=== PATIENT | female | born 1955 ===

== ENCOUNTER 2017-04-19 08:50 | Inpatient (IN) ==
[2017-04-19] MEDS ORDERED: ONDANSETRON 4 MG/2 ML VIAL IV STA (09:30)
[2017-04-19] MEDS ORDERED: SODIUM CHLORIDE 0.9% 500 ML IV STA (09:30)
[2017-04-19] MEDS ORDERED: PANTOPRAZOLE 40 MG VIAL IV STA (09:30)
[2017-04-19] MEDS ORDERED: PIPERACILLIN/TAZOBACTAM 3,375 MG in SODIUM CHLORIDE 0.9% 100 ML IV STA (09:30)
[2017-04-19] MEDS ORDERED: HYDROmorphone 2 MG/1 ML VIAL IV STA (09:30)
[2017-04-19] MEDS ORDERED: cefOXitin 2,000 MG in SYRINGE 1 EACH IV ONE (10:10)
[2017-04-19 10:32] LABS: Basophils % 0.1 % (0.0-0.8); Eosinophils % 0.6 % (0.00-10.9); Hematocrit 25.3 VOL% (35.7-47.0); Hemoglobin 9.1 GM/DL (12.0-16.0); Immature Granulocytes % 0.7 %; Immature Granulocytes Absolute 0.05 #; Lymphocytes # 0.8 10*3/uL (1.4-4.0); Lymphocytes % 11.7 % (21.3-54.2); Mean Corpuscular Hemoglobin 35 PG (27-34); Mean Corpuscular Volume 98.4 FL (87-102); Mean Platelet Volume 10.8 FL (9.6-12.0); Monocytes # 0.9 10*3/uL (0.11-0.8); Monocytes % 12.9 % (1.7-12.7); Platelet Count 85 T/CUMM (130-400); Red Blood Count 2.57 MC/CUMM (3.8-5.5); Red Cell Distribution Width 12.1 % (9.3-17.3); White Blood Count 6.8 T/CUMM (4-12)
[2017-04-19] MEDS ORDERED: PIPERACILLIN/TAZOBACTAM 3,375 MG VIAL IV ONE (10:34)
[2017-04-19] MEDS ORDERED: HYDROmorphone 2 MG/1 ML VIAL ONE (10:35)
[2017-04-19] MEDS ORDERED: ONDANSETRON 4 MG/2 ML VIAL ONE (10:35)
[2017-04-19] MEDS ORDERED: PANTOPRAZOLE 40 MG VIAL IV ONE (10:35)
[2017-04-19 10:41] LABS: INR 1.2; PT Patient Result 12.4 SECS
[2017-04-19] MEDS ORDERED: LORazepam 2 MG/1 ML VIAL IV PRN (10:44)
[2017-04-19 10:51] LABS: Lactic Acid 0.8 MMOL/L (0.4-2.0)
[2017-04-19 11:00] LABS: Alanine Aminotransferase 30 U/L (13-56); Albumin 2.1 G/DL (3.4-5.0); Alkaline Phosphatase 214 U/L (45-117); Amylase 22 U/L (25-115); Aspartate Amino Transferase 53 U/L (0-37); Blood Urea Nitrogen 11 MG/DL (7-18); Calcium 6.9 MG/DL (8.5-10.1); Glucose 139 MG/DL (74-106); Osmolality,Calculated 251.5 MOS/KG (273-304); Potassium 4.2 MMOL/L (3.5-5.1); Sodium 125 MMOL/L (136-145); Total Protein 6.1 G/DL (6.4-8.3); Troponin I Only < 0.015 NG/ML (0.00-0.045)
[2017-04-19] MEDS ORDERED: SODIUM CHLORIDE 0.9% 1,000 ML IV SCH (11:00)
[2017-04-19 11:15] LABS: Ammonia 33 UMOL/L (11-32)
[2017-04-19 11:25] LABS: Folate 13.3 NG/ML (5.4-24.0)
[2017-04-19 12:01] LABS: Hypochromasia 1+; Microcytosis 1+
[2017-04-19] MEDS ORDERED: SODIUM CHLORIDE 0.9% 1,000 ML IV PRN (12:12)
[2017-04-19] MEDS ORDERED: PHENYLEPHRINE DRIP 0 MG/0 ML PREMIX IV ONE (15:02)
[2017-04-19] MEDS ORDERED: SEVOFLURANE 1 UNIT/15 MINUTE INH ONE (15:13)
[2017-04-19] MEDS ORDERED: SUCCINYLCHOLINE 200 MG/10 ML VIAL ONE (15:14)
[2017-04-19] MEDS ORDERED: ETOMIDATE 40 MG/20 ML VIAL IV ONE (15:14)
[2017-04-19] MEDS ORDERED: fentaNYL 100 MCG/2 ML VIAL ONE (15:14)
[2017-04-19] MEDS ORDERED: ROCURONIUM 100 MG/10 ML VIAL IV ONE (15:14)
[2017-04-19] MEDS ORDERED: ONDANSETRON 4 MG/2 ML VIAL IV PRN (15:16)
[2017-04-19] MEDS ORDERED: HYDROmorphone 2 MG/1 ML VIAL IV PRN (15:16)
[2017-04-19] MEDS ORDERED: PROPOFOL 1,000 MG/100 ML BOTTLE IV ONE (15:19)
[2017-04-19] MEDS ORDERED: HYDROmorphone PCA 30 MG/30 ML SYRINGE IV SCH (15:39)
[2017-04-19] MEDS ORDERED: NALOXONE 0.4 MG/ML VIAL IV PRN (15:39)
[2017-04-19] MEDS: SODIUM CHLORIDE 0.9% 1,000 ML IV SCH (15:45)
[2017-04-19 16:18] LABS: ABG Base Excess -6.9 MMOL/L (-2.5-2.5); ABG HCO3 18.8 MMOL/L (20-26); ABG PCO2 43.7 MM HG (35-48); ABG PH 7.266 (7.35-7.45); ABG TCO2 18.4 MMOL/L (23-27); Allen Test Positive; Pt O2 Delivery Device Ventilator
[2017-04-19] MEDS ORDERED: PNEUMOCOCCAL VACCINE (23 VALENT) 0.5 ML VIAL IM ONE (17:00)
[2017-04-19 18:29] LABS: Basophils % 0.2 % (0.0-0.8); Eosinophils % 0.1 % (0.00-10.9); Hematocrit 25.5 VOL% (35.7-47.0); Hemoglobin 9.2 GM/DL (12.0-16.0); Immature Granulocytes % 0.3 %; Immature Granulocytes Absolute 0.03 #; Lymphocytes # 0.8 10*3/uL (1.4-4.0); Lymphocytes % 7.3 % (21.3-54.2); Mean Corpuscular HGB Conc 36.1 GM/DL (32-36); Mean Corpuscular Hemoglobin 36 PG (27-34); Mean Corpuscular Volume 98.5 FL (87-102); Mean Platelet Volume 10.4 FL (9.6-12.0); Monocytes # 0.6 10*3/uL (0.11-0.8); Monocytes % 5.5 % (1.7-12.7); Neutrophils # 9.8 10*3/uL (1.4-7.4); Neutrophils % 86.6 % (38.7-73.9); Platelet Count 127 T/CUMM (130-400); Red Blood Count 2.59 MC/CUMM (3.8-5.5); Red Cell Distribution Width 12.8 % (9.3-17.3); White Blood Count 11.3 T/CUMM (4-12)
[2017-04-19] MEDS: PROPOFOL 1,000 MG/100 ML BOTTLE IV SCH (20:41)
[2017-04-20] MEDS ORDERED: fentaNYL 100 MCG/2 ML VIAL IV ONE (00:29)
[2017-04-20] MEDS: fentaNYL INJ 1,250 MCG in SODIUM CHLORIDE 0.9% 225 ML IV SCH ×2 (02:00→15:28)
[2017-04-20] MEDS ORDERED: SODIUM CHLORIDE 0.9% 500 ML IV ONE (03:00)
[2017-04-20 04:06] LABS: ABG Base Excess -7.5 MMOL/L (-2.5-2.5); ABG Oxygen Saturation 98.9 % (95-100); ABG PCO2 31.3 MM HG (35-48); ABG PH 7.354 (7.35-7.45); ABG PO2 272.6 MM HG (80-95); Allen Test Positive; Pt O2 Delivery Device Ventilator
[2017-04-20] MEDS: SODIUM CHLORIDE 0.9% 1,000 ML IV SCH ×3 (05:34→18:35)
[2017-04-20] MEDS: NOREPINEPHRINE 8 MG in SODIUM CHLORIDE 0.9% 242 ML IV SCH (05:36)
[2017-04-20 05:41] LABS: Basophils % 0.3 % (0.0-0.8); Eosinophils % 0.2 % (0.00-10.9); Hematocrit 22.5 VOL% (35.7-47.0); Immature Granulocytes % 0.6 %; Immature Granulocytes Absolute 0.07 #; Lymphocytes # 0.8 10*3/uL (1.4-4.0); Lymphocytes % 6.5 % (21.3-54.2); Mean Corpuscular HGB Conc 35.6 GM/DL (32-36); Mean Corpuscular Hemoglobin 36 PG (27-34); Mean Corpuscular Volume 101.4 FL (87-102); Mean Platelet Volume 10.4 FL (9.6-12.0); Neutrophils # 10.5 10*3/uL (1.4-7.4); Neutrophils % 84.4 % (38.7-73.9); Platelet Count 112 T/CUMM (130-400); Red Blood Count 2.22 MC/CUMM (3.8-5.5); Red Cell Distribution Width 12.9 % (9.3-17.3); White Blood Count 12.4 T/CUMM (4-12)
[2017-04-20 05:47] LABS: INR 1.1; PT Patient Result 11.9 SECS
[2017-04-20 06:19] LABS: Albumin 1.6 G/DL (3.4-5.0); Bilirubin,Total 2.4 MG/DL (0.2-1.0); Calcium 6.5 MG/DL (8.5-10.1); Osmolality,Calculated 264.7 MOS/KG (273-304); Potassium 4.2 MMOL/L (3.5-5.1); Total Protein 4.6 G/DL (6.4-8.3)
[2017-04-20] MEDS ORDERED: ALBUMIN 5% 50 GM in PREMIX 1 EACH IV ONE (06:40)
[2017-04-20] MEDS ORDERED: SODIUM CHLORIDE 0.9% 1,000 ML IV ONE (07:00)
[2017-04-20] MEDS: THIAMINE 200 MG/2 ML VIAL IV SCH (09:07)
[2017-04-20] MEDS: PANTOPRAZOLE 40 MG VIAL IV SCH (09:08)
[2017-04-20] MEDS: PIPERACILLIN/TAZOBACTAM 3,375 MG in SODIUM CHLORIDE 0.9% 100 ML IV SCH ×2 (10:25→17:23)
[2017-04-20] MEDS: PROPOFOL 1,000 MG/100 ML BOTTLE IV SCH ×2 (11:58→20:53)
[2017-04-20 12:39] LABS: Basophils % 0.2 % (0.0-0.8); Eosinophils % 0.3 % (0.00-10.9); Hematocrit 18.4 VOL% (35.7-47.0); Immature Granulocytes % 0.6 %; Immature Granulocytes Absolute 0.07 #; Lymphocytes # 0.9 10*3/uL (1.4-4.0); Lymphocytes % 7.7 % (21.3-54.2); Mean Corpuscular HGB Conc 34.8 GM/DL (32-36); Mean Corpuscular Hemoglobin 36 PG (27-34); Mean Corpuscular Volume 103.4 FL (87-102); Mean Platelet Volume 9.9 FL (9.6-12.0); Monocytes # 1.2 10*3/uL (0.11-0.8); Monocytes % 9.9 % (1.7-12.7); Neutrophils # 9.6 10*3/uL (1.4-7.4); Neutrophils % 81.3 % (38.7-73.9); Red Blood Count 1.78 MC/CUMM (3.8-5.5); Red Cell Distribution Width 13.2 % (9.3-17.3); White Blood Count 11.8 T/CUMM (4-12)
[2017-04-20 13:07] LABS: Hemoglobin 6.4 GM/DL (12.0-16.0); Platelet Count 92 T/CUMM (130-400)
[2017-04-20 13:16] LABS: Platelet Estimate Decreased
[2017-04-20] MEDS ORDERED: SODIUM CHLORIDE 0.9% 1,000 ML IV PRN ×2 (13:20→23:56)
[2017-04-20] MEDS: ALBUMIN 25% 25 GM in PREMIX 1 EACH IV SCH (15:55)
[2017-04-20] MEDS: LACTULOSE 20 GM/30 ML UDCUP NG SCH ×2 (20:54→22:17)
[2017-04-20 22:36] LABS: Hematocrit 20.9 VOL% (35.7-47.0)
[2017-04-21] MEDS: ALBUMIN 25% 25 GM in PREMIX 1 EACH IV SCH ×3 (00:28→15:56)
[2017-04-21] MEDS: PROPOFOL 1,000 MG/100 ML BOTTLE IV SCH ×2 (01:26→16:14)
[2017-04-21] MEDS: PIPERACILLIN/TAZOBACTAM 3,375 MG in SODIUM CHLORIDE 0.9% 100 ML IV SCH ×3 (02:00→17:11)
[2017-04-21] MEDS: fentaNYL INJ 1,250 MCG in SODIUM CHLORIDE 0.9% 225 ML IV SCH ×2 (02:49→06:38)
[2017-04-21 03:55] LABS: ABG HCO3 17.2 MMOL/L (20-26); ABG Oxygen Saturation 99.8 % (95-100); ABG PCO2 39.8 MM HG (35-48); ABG PH 7.254 (7.35-7.45); ABG TCO2 16.7 MMOL/L (23-27)
[2017-04-21] MEDS: NOREPINEPHRINE 8 MG in SODIUM CHLORIDE 0.9% 242 ML IV SCH (06:37)
[2017-04-21] MEDS: SODIUM CHLORIDE 0.9% 1,000 ML IV SCH ×2 (06:38→16:30)
[2017-04-21 06:43] LABS: Basophils % 0.4 % (0.0-0.8); Eosinophils # 0.2 10*3/uL (0.0-0.87); Eosinophils % 2.2 % (0.00-10.9); Hematocrit 26.4 VOL% (35.7-47.0); Immature Granulocytes % 0.3 %; Immature Granulocytes Absolute 0.02 #; Lymphocytes # 0.4 10*3/uL (1.4-4.0); Lymphocytes % 6.4 % (21.3-54.2); Mean Corpuscular HGB Conc 34.1 GM/DL (32-36); Mean Corpuscular Hemoglobin 32 PG (27-34); Mean Platelet Volume 10.8 FL (9.6-12.0); Monocytes # 0.6 10*3/uL (0.11-0.8); Monocytes % 9.6 % (1.7-12.7); Neutrophils # 5.4 10*3/uL (1.4-7.4); Neutrophils % 81.1 % (38.7-73.9); Platelet Count 81 T/CUMM (130-400); Red Blood Count 2.78 MC/CUMM (3.8-5.5); Red Cell Distribution Width 17.9 % (9.3-17.3); White Blood Count 6.7 T/CUMM (4-12)
[2017-04-21 07:04] LABS: Microcytosis 1+; Ovalocytes Slight; Platelet Estimate Decreased
[2017-04-21 07:06] LABS: Albumin 2.6 G/DL (3.4-5.0); Calcium 6.6 MG/DL (8.5-10.1); Osmolality,Calculated 276.7 MOS/KG (273-304); Potassium 3.7 MMOL/L (3.5-5.1); Total Protein 4.9 G/DL (6.4-8.3)
[2017-04-21 07:49] LABS: INR 1.2; PT Patient Result 12.4 SECS
[2017-04-21 07:53] LABS: Partial Thromboplastin Time 43.9 SECS (0-40)
[2017-04-21] MEDS: THIAMINE 200 MG/2 ML VIAL IV SCH (09:51)
[2017-04-21] MEDS: LACTULOSE 20 GM/30 ML UDCUP NG SCH ×2 (09:51→21:56)
[2017-04-21] MEDS: PANTOPRAZOLE 40 MG VIAL IV SCH (09:51)
[2017-04-21] MEDS ORDERED: DEXTROSE 50% 25 GM/50 ML VIAL IV PRN (12:16)
[2017-04-21] MEDS ORDERED: GLUCAGON 1 MG VIAL IM PRN (12:16)
[2017-04-21] MEDS: INSULIN REGULAR 100 UNIT/ML SUBCUT SCH (18:00)
[2017-04-22] MEDS: INSULIN REGULAR 100 UNIT/ML SUBCUT SCH ×4 (00:28→17:53)
[2017-04-22] MEDS: ALBUMIN 25% 25 GM in PREMIX 1 EACH IV SCH ×3 (00:38→16:00)
[2017-04-22] MEDS: PIPERACILLIN/TAZOBACTAM 3,375 MG in SODIUM CHLORIDE 0.9% 100 ML IV SCH ×3 (03:08→17:30)
[2017-04-22] MEDS: SODIUM CHLORIDE 0.9% 1,000 ML IV SCH ×3 (03:49→22:11)
[2017-04-22 04:18] LABS: ABG Base Excess -9.6 MMOL/L (-2.5-2.5); ABG HCO3 16.8 MMOL/L (20-26); ABG Oxygen Saturation 99.4 % (95-100); ABG PH 7.272 (7.35-7.45); ABG TCO2 15.3 MMOL/L (23-27); Allen Test Positive; Pt O2 Delivery Device Ventilator
[2017-04-22 05:08] LABS: Bilirubin,Total 4.7 MG/DL (0.2-1.0); Osmolality,Calculated 280.4 MOS/KG (273-304); Potassium 3.5 MMOL/L (3.5-5.1); Total Protein 4.9 G/DL (6.4-8.3)
[2017-04-22] MEDS: fentaNYL INJ 1,250 MCG in SODIUM CHLORIDE 0.9% 225 ML IV SCH (05:52)
[2017-04-22] MEDS: NOREPINEPHRINE 8 MG in SODIUM CHLORIDE 0.9% 242 ML IV SCH (05:52)
[2017-04-22 06:21] LABS: Basophils % 0.4 % (0.0-0.8); Eosinophils # 0.2 10*3/uL (0.0-0.87); Eosinophils % 3.7 % (0.00-10.9); Hematocrit 26.8 VOL% (35.7-47.0); Hemoglobin 8.9 GM/DL (12.0-16.0); Immature Granulocytes % 0.4 %; Immature Granulocytes Absolute 0.02 #; Lymphocytes # 0.5 10*3/uL (1.4-4.0); Mean Corpuscular HGB Conc 33.2 GM/DL (32-36); Mean Corpuscular Hemoglobin 32 PG (27-34); Mean Corpuscular Volume 96.4 FL (87-102); Mean Platelet Volume 10.6 FL (9.6-12.0); Monocytes # 0.4 10*3/uL (0.11-0.8); Neutrophils # 4.2 10*3/uL (1.4-7.4); Neutrophils % 78.5 % (38.7-73.9); Platelet Count 59 T/CUMM (130-400); Red Blood Count 2.78 MC/CUMM (3.8-5.5); Red Cell Distribution Width 18.8 % (9.3-17.3); White Blood Count 5.4 T/CUMM (4-12)
[2017-04-22] MEDS: PROPOFOL 1,000 MG/100 ML BOTTLE IV SCH ×2 (07:30→15:38)
[2017-04-22 09:12] LABS: ABG Base Excess -8.8 MMOL/L (-2.5-2.5); ABG HCO3 17.3 MMOL/L (20-26); ABG PCO2 37.7 MM HG (35-48); ABG PH 7.273 (7.35-7.45); ABG TCO2 16.3 MMOL/L (23-27); Allen Test Positive; Pt O2 Delivery Device Ventilator
[2017-04-22] MEDS: THIAMINE 200 MG/2 ML VIAL IV SCH (09:21)
[2017-04-22] MEDS: LACTULOSE 20 GM/30 ML UDCUP NG SCH ×2 (09:21→21:26)
[2017-04-22] MEDS: PANTOPRAZOLE 40 MG VIAL IV SCH (09:21)
[2017-04-22] MEDS ORDERED: SPIRONOLACTONE 50 MG TABLET PO SCH (16:30)
[2017-04-22] MEDS: FUROSEMIDE 40 MG TABLET PO SCH (17:30)
[2017-04-22] MEDS: SPIRONOLACTONE 50 MG TABLET PO SCH (17:30)
[2017-04-23] MEDS: INSULIN REGULAR 100 UNIT/ML SUBCUT SCH ×4 (00:29→18:35)
[2017-04-23] MEDS: fentaNYL INJ 1,250 MCG in SODIUM CHLORIDE 0.9% 225 ML IV SCH (00:30)
[2017-04-23] MEDS: PIPERACILLIN/TAZOBACTAM 3,375 MG in SODIUM CHLORIDE 0.9% 100 ML IV SCH ×3 (01:00→19:20)
[2017-04-23] MEDS: ALBUMIN 25% 25 GM in PREMIX 1 EACH IV SCH ×3 (01:00→16:00)
[2017-04-23 03:50] LABS: Allen Test Positive
[2017-04-23 03:53] LABS: ABG Base Excess -7.7 MMOL/L (-2.5-2.5); ABG HCO3 17.6 MMOL/L (20-26); ABG Oxygen Saturation 98.2 % (95-100); ABG PCO2 35.1 MM HG (35-48); ABG PH 7.319 (7.35-7.45); ABG PO2 141.9 MM HG (80-95); ABG TCO2 18.7 MMOL/L (23-27)
[2017-04-23 04:48] LABS: Basophils % 0.2 % (0.0-0.8); Eosinophils # 0.2 10*3/uL (0.0-0.87); Eosinophils % 5.4 % (0.00-10.9); Hematocrit 26.8 VOL% (35.7-47.0); Hemoglobin 9.4 GM/DL (12.0-16.0); Immature Granulocytes % 0.2 %; Immature Granulocytes Absolute 0.01 #; Lymphocytes # 0.5 10*3/uL (1.4-4.0); Mean Corpuscular HGB Conc 35.1 GM/DL (32-36); Mean Corpuscular Hemoglobin 32 PG (27-34); Mean Corpuscular Volume 91.8 FL (87-102); Mean Platelet Volume 10.1 FL (9.6-12.0); Monocytes # 0.4 10*3/uL (0.11-0.8); Monocytes % 9.4 % (1.7-12.7); Neutrophils # 3.4 10*3/uL (1.4-7.4); Neutrophils % 74.8 % (38.7-73.9); Platelet Count 63 T/CUMM (130-400); Red Blood Count 2.92 MC/CUMM (3.8-5.5); Red Cell Distribution Width 17.9 % (9.3-17.3); White Blood Count 4.5 T/CUMM (4-12)
[2017-04-23 05:21] LABS: INR 1.3; PT Patient Result 13.2 SECS
[2017-04-23 05:22] LABS: Albumin 3.2 G/DL (3.4-5.0); Bilirubin,Total 4.3 MG/DL (0.2-1.0); Calcium 7.4 MG/DL (8.5-10.1); Osmolality,Calculated 284.8 MOS/KG (273-304); Potassium 3.1 MMOL/L (3.5-5.1); Total Protein 4.8 G/DL (6.4-8.3)
[2017-04-23 05:27] LABS: Eosinophils 6 % (0-10); Hypochromasia 1+; Lymphocytes 12 % (20-55); Platelet Estimate Decreased; Segmented Neutrophils 77 % (50-85); Total Cells Counted 100
[2017-04-23 05:28] LABS: Burr Cells Slight; Microcytosis Slight; Ovalocytes Slight
[2017-04-23 05:29] LABS: Partial Thromboplastin Time 48.3 SECS (0-40)
[2017-04-23] MEDS: NOREPINEPHRINE 8 MG in SODIUM CHLORIDE 0.9% 242 ML IV SCH (05:50)
[2017-04-23] MEDS ORDERED: POTASSIUM CHLORIDE 20 MEQ TABLET PO ONE (05:54)
[2017-04-23] MEDS: SODIUM CHLORIDE 0.9% 1,000 ML IV SCH ×3 (07:03→16:04)
[2017-04-23] MEDS: LACTULOSE 20 GM/30 ML UDCUP NG SCH ×3 (10:30→21:55)
[2017-04-23] MEDS: FUROSEMIDE 40 MG TABLET PO SCH (10:30)
[2017-04-23] MEDS: SPIRONOLACTONE 50 MG TABLET PO SCH (10:30)
[2017-04-23] MEDS: PANTOPRAZOLE 40 MG VIAL IV SCH (10:32)
[2017-04-23] MEDS: THIAMINE 200 MG/2 ML VIAL IV SCH (10:34)
[2017-04-24] MEDS: INSULIN REGULAR 100 UNIT/ML SUBCUT SCH ×4 (01:00→19:20)
[2017-04-24] MEDS: ALBUMIN 25% 25 GM in PREMIX 1 EACH IV SCH ×3 (01:38→17:32)
[2017-04-24] MEDS: PIPERACILLIN/TAZOBACTAM 3,375 MG in SODIUM CHLORIDE 0.9% 100 ML IV SCH ×3 (02:39→19:20)
[2017-04-24 04:37] LABS: Basophils % 0.5 % (0.0-0.8); Eosinophils # 0.4 10*3/uL (0.0-0.87); Eosinophils % 8.4 % (0.00-10.9); Hematocrit 27.3 VOL% (35.7-47.0); Hemoglobin 9.2 GM/DL (12.0-16.0); Immature Granulocytes % 0.5 %; Immature Granulocytes Absolute 0.02 #; Lymphocytes # 0.7 10*3/uL (1.4-4.0); Lymphocytes % 17.2 % (21.3-54.2); Mean Corpuscular HGB Conc 33.7 GM/DL (32-36); Mean Corpuscular Hemoglobin 32 PG (27-34); Mean Corpuscular Volume 93.5 FL (87-102); Mean Platelet Volume 10.8 FL (9.6-12.0); Monocytes # 0.4 10*3/uL (0.11-0.8); Monocytes % 10.2 % (1.7-12.7); Neutrophils # 2.7 10*3/uL (1.4-7.4); Neutrophils % 63.2 % (38.7-73.9); Red Blood Count 2.92 MC/CUMM (3.8-5.5); Red Cell Distribution Width 17.3 % (9.3-17.3); White Blood Count 4.3 T/CUMM (4-12)
[2017-04-24 04:45] LABS: INR 1.4; PT Patient Result 14.3 SECS
[2017-04-24 04:55] LABS: Platelet Count 69 T/CUMM (130-400)
[2017-04-24 05:09] LABS: Albumin 3.8 G/DL (3.4-5.0); Bilirubin,Total 3.6 MG/DL (0.2-1.0); Calcium 7.5 MG/DL (8.5-10.1); Osmolality,Calculated 282.1 MOS/KG (273-304); Potassium 3.3 MMOL/L (3.5-5.1); Total Protein 5.2 G/DL (6.4-8.3)
[2017-04-24 05:17] LABS: Microcytosis Slight; Ovalocytes Slight; Platelet Estimate Decreased
[2017-04-24 05:25] LABS: Partial Thromboplastin Time 48.3 SECS (0-40)
[2017-04-24] MEDS: SODIUM CHLORIDE 0.9% 1,000 ML IV SCH ×3 (07:11→17:33)
[2017-04-24] MEDS ORDERED: POTASSIUM CHLORIDE 20 MEQ TABLET PO ONE (10:13)
[2017-04-24] MEDS: THIAMINE 200 MG/2 ML VIAL IV SCH (11:11)
[2017-04-24] MEDS: LACTULOSE 20 GM/30 ML UDCUP NG SCH ×2 (11:13→21:41)
[2017-04-24] MEDS: PANTOPRAZOLE 40 MG VIAL IV SCH (11:13)
[2017-04-24] MEDS: SPIRONOLACTONE 50 MG TABLET PO SCH (11:24)
[2017-04-24] MEDS: FUROSEMIDE 40 MG TABLET PO SCH (11:25)
[2017-04-24] MEDS: ALBUTEROL/IPRATROPIUM 3 ML NEB RESP TX SCH ×2 (13:47→20:19)
[2017-04-25] MEDS: INSULIN REGULAR 100 UNIT/ML SUBCUT SCH ×4 (00:58→20:37)
[2017-04-25] MEDS: ALBUMIN 25% 25 GM in PREMIX 1 EACH IV SCH ×4 (00:58→23:42)
[2017-04-25] MEDS: SODIUM CHLORIDE 0.9% 1,000 ML IV SCH ×3 (01:05→21:01)
[2017-04-25] MEDS: ALBUTEROL/IPRATROPIUM 3 ML NEB RESP TX SCH ×4 (01:21→21:38)
[2017-04-25] MEDS: PIPERACILLIN/TAZOBACTAM 3,375 MG in SODIUM CHLORIDE 0.9% 100 ML IV SCH ×3 (01:45→21:00)
[2017-04-25 07:25] LABS: Calcium 7.4 MG/DL (8.5-10.1); Osmolality,Calculated 281.3 MOS/KG (273-304); Potassium 3.6 MMOL/L (3.5-5.1)
[2017-04-25] MEDS: LACTULOSE 20 GM/30 ML UDCUP NG SCH ×2 (10:07→21:02)
[2017-04-25] MEDS: FUROSEMIDE 40 MG TABLET PO SCH (10:08)
[2017-04-25] MEDS: PANTOPRAZOLE 40 MG VIAL IV SCH (10:20)
[2017-04-25] MEDS: THIAMINE 200 MG/2 ML VIAL IV SCH (10:22)
[2017-04-25] MEDS: SPIRONOLACTONE 50 MG TABLET PO SCH (10:30)
[2017-04-26] MEDS: INSULIN REGULAR 100 UNIT/ML SUBCUT SCH ×5 (00:10→17:59)
[2017-04-26] MEDS: SODIUM CHLORIDE 0.9% 1,000 ML IV SCH ×2 (06:08→16:23)
[2017-04-26] MEDS: PIPERACILLIN/TAZOBACTAM 3,375 MG in SODIUM CHLORIDE 0.9% 100 ML IV SCH ×3 (06:10→20:32)
[2017-04-26] MEDS: ALBUTEROL/IPRATROPIUM 3 ML NEB RESP TX SCH ×4 (06:13→21:32)
[2017-04-26] MEDS: ALBUMIN 25% 25 GM in PREMIX 1 EACH IV SCH ×2 (09:11→15:28)
[2017-04-26] MEDS: FUROSEMIDE 40 MG TABLET PO SCH (09:23)
[2017-04-26] MEDS: SPIRONOLACTONE 50 MG TABLET PO SCH (09:23)
[2017-04-26] MEDS: LACTULOSE 20 GM/30 ML UDCUP NG SCH ×2 (09:24→21:34)
[2017-04-26] MEDS: THIAMINE 200 MG/2 ML VIAL IV SCH (09:27)
[2017-04-26] MEDS: PANTOPRAZOLE 40 MG VIAL IV SCH (09:30)
[2017-04-26 17:17] LABS: INR 1.4; PT Patient Result 14.7 SECS
[2017-04-26 17:32] LABS: Partial Thromboplastin Time 51.3 SECS (0-40)
[2017-04-27] MEDS: ALBUTEROL/IPRATROPIUM 3 ML NEB RESP TX SCH ×4 (00:10→19:35)
[2017-04-27] MEDS: ALBUMIN 25% 25 GM in PREMIX 1 EACH IV SCH ×4 (00:52→23:41)
[2017-04-27] MEDS: SODIUM CHLORIDE 0.9% 1,000 ML IV SCH ×2 (01:11→11:09)
[2017-04-27 04:47] LABS: Basophils % 0.2 % (0.0-0.8); Eosinophils # 0.3 10*3/uL (0.0-0.87); Eosinophils % 6.9 % (0.00-10.9); Hematocrit 23.5 VOL% (35.7-47.0); Immature Granulocytes % 0.2 %; Immature Granulocytes Absolute 0.01 #; Lymphocytes # 0.7 10*3/uL (1.4-4.0); Lymphocytes % 15.1 % (21.3-54.2); Mean Corpuscular Hemoglobin 32 PG (27-34); Mean Corpuscular Volume 92.5 FL (87-102); Mean Platelet Volume 11.1 FL (9.6-12.0); Monocytes # 0.4 10*3/uL (0.11-0.8); Monocytes % 7.8 % (1.7-12.7); Neutrophils # 3.1 10*3/uL (1.4-7.4); Neutrophils % 69.8 % (38.7-73.9); Platelet Count 50 T/CUMM (130-400); Red Blood Count 2.54 MC/CUMM (3.8-5.5); Red Cell Distribution Width 17.2 % (9.3-17.3); White Blood Count 4.5 T/CUMM (4-12)
[2017-04-27 05:06] LABS: Hypochromasia Slight; Ovalocytes Slight; Platelet Estimate Decreased
[2017-04-27 05:07] LABS: Giant Platelets Few; Microcytosis Slight
[2017-04-27 05:11] LABS: Calcium 7.7 MG/DL (8.5-10.1); Osmolality,Calculated 282.1 MOS/KG (273-304); Potassium 2.9 MMOL/L (3.5-5.1)
[2017-04-27] MEDS: PIPERACILLIN/TAZOBACTAM 3,375 MG in SODIUM CHLORIDE 0.9% 100 ML IV SCH ×3 (06:10→20:49)
[2017-04-27] MEDS: INSULIN REGULAR 100 UNIT/ML SUBCUT SCH ×4 (06:20→23:58)
[2017-04-27] MEDS: PANTOPRAZOLE 40 MG VIAL IV SCH (09:22)
[2017-04-27 09:23] LABS: INR 1.3
[2017-04-27] MEDS: THIAMINE 200 MG/2 ML VIAL IV SCH (09:27)
[2017-04-27 09:29] LABS: Partial Thromboplastin Time 44.9 SECS (0-40)
[2017-04-27] MEDS: SPIRONOLACTONE 50 MG TABLET PO SCH (09:30)
[2017-04-27] MEDS: FUROSEMIDE 40 MG TABLET PO SCH (09:31)
[2017-04-27] MEDS: LACTULOSE 20 GM/30 ML UDCUP NG SCH ×2 (09:31→20:49)
[2017-04-28] MEDS: ALBUTEROL/IPRATROPIUM 3 ML NEB RESP TX SCH ×4 (01:48→20:29)
[2017-04-28] MEDS: PIPERACILLIN/TAZOBACTAM 3,375 MG in SODIUM CHLORIDE 0.9% 100 ML IV SCH ×3 (04:20→22:20)
[2017-04-28] MEDS: SODIUM CHLORIDE 0.9% 1,000 ML IV SCH (04:26)
[2017-04-28 05:34] LABS: Basophils % 0.6 % (0.0-0.8); Eosinophils # 0.3 10*3/uL (0.0-0.87); Hematocrit 20.2 VOL% (35.7-47.0); Hemoglobin 7.2 GM/DL (12.0-16.0); Immature Granulocytes % 0.3 %; Immature Granulocytes Absolute 0.01 #; Lymphocytes # 0.7 10*3/uL (1.4-4.0); Lymphocytes % 21.5 % (21.3-54.2); Mean Corpuscular HGB Conc 35.6 GM/DL (32-36); Mean Corpuscular Hemoglobin 33 PG (27-34); Mean Corpuscular Volume 91.4 FL (87-102); Monocytes # 0.3 10*3/uL (0.11-0.8); Monocytes % 7.8 % (1.7-12.7); Neutrophils % 60.8 % (38.7-73.9); Platelet Count 50 T/CUMM (130-400); Red Blood Count 2.21 MC/CUMM (3.8-5.5); Red Cell Distribution Width 17.4 % (9.3-17.3); White Blood Count 3.2 T/CUMM (4-12)
[2017-04-28] MEDS: INSULIN REGULAR 100 UNIT/ML SUBCUT SCH ×3 (05:44→17:57)
[2017-04-28 05:59] LABS: INR 1.4; PT Patient Result 14.7 SECS
[2017-04-28 06:06] LABS: Anisocytosis 1+; Poikilocytosis 1+
[2017-04-28 06:10] LABS: Partial Thromboplastin Time 50.6 SECS (0-40)
[2017-04-28 06:12] LABS: Bilirubin,Total 2.7 MG/DL (0.2-1.0); Calcium 7.8 MG/DL (8.5-10.1); Osmolality,Calculated 280.4 MOS/KG (273-304); Total Protein 5.4 G/DL (6.4-8.3)
[2017-04-28] MEDS: FUROSEMIDE 40 MG TABLET PO SCH (08:32)
[2017-04-28] MEDS: SPIRONOLACTONE 50 MG TABLET PO SCH (08:32)
[2017-04-28] MEDS: LACTULOSE 20 GM/30 ML UDCUP NG SCH ×2 (08:33→20:33)
[2017-04-28] MEDS: PANTOPRAZOLE 40 MG VIAL IV SCH (08:34)
[2017-04-28] MEDS: THIAMINE 200 MG/2 ML VIAL IV SCH (08:38)
[2017-04-28] MEDS: ALBUMIN 25% 25 GM in PREMIX 1 EACH IV SCH ×2 (08:40→17:58)
[2017-04-28] MEDS ORDERED: SODIUM CHLORIDE 0.9% 1,000 ML IV PRN ×2 (09:51→10:40)
[2017-04-29] MEDS: ALBUMIN 25% 25 GM in PREMIX 1 EACH IV SCH ×3 (00:40→16:28)
[2017-04-29] MEDS: ALBUTEROL/IPRATROPIUM 3 ML NEB RESP TX SCH ×4 (01:07→19:58)
[2017-04-29] MEDS: INSULIN REGULAR 100 UNIT/ML SUBCUT SCH ×4 (03:00→18:21)
[2017-04-29] MEDS: SODIUM CHLORIDE 0.9% 1,000 ML IV SCH ×2 (03:00→18:28)
[2017-04-29] MEDS: PIPERACILLIN/TAZOBACTAM 3,375 MG in SODIUM CHLORIDE 0.9% 100 ML IV SCH (05:18)
[2017-04-29 05:51] LABS: Basophils % 0.7 % (0.0-0.8); Eosinophils # 0.3 10*3/uL (0.0-0.87); Eosinophils % 8.7 % (0.00-10.9); Hematocrit 24.9 VOL% (35.7-47.0); Hemoglobin 8.6 GM/DL (12.0-16.0); Immature Granulocytes % 0.3 %; Immature Granulocytes Absolute 0.01 #; Lymphocytes # 0.6 10*3/uL (1.4-4.0); Lymphocytes % 19.4 % (21.3-54.2); Mean Corpuscular HGB Conc 34.5 GM/DL (32-36); Mean Corpuscular Hemoglobin 32 PG (27-34); Mean Corpuscular Volume 92.2 FL (87-102); Monocytes # 0.2 10*3/uL (0.11-0.8); Monocytes % 6.7 % (1.7-12.7); Neutrophils # 1.9 10*3/uL (1.4-7.4); Neutrophils % 64.2 % (38.7-73.9); Red Cell Distribution Width 16.3 % (9.3-17.3)
[2017-04-29 05:56] LABS: Platelet Count 48 T/CUMM (130-400)
[2017-04-29 06:17] LABS: Calcium 7.9 MG/DL (8.5-10.1); Magnesium 1.5 MG/DL (1.8-2.4); Osmolality,Calculated 281.3 MOS/KG (273-304); Potassium 2.7 MMOL/L (3.5-5.1)
[2017-04-29] MEDS: PANTOPRAZOLE 40 MG VIAL IV SCH (09:25)
[2017-04-29] MEDS: SPIRONOLACTONE 50 MG TABLET PO SCH (09:27)
[2017-04-29] MEDS: FUROSEMIDE 40 MG TABLET PO SCH (09:28)
[2017-04-29] MEDS: THIAMINE 200 MG/2 ML VIAL IV SCH (09:31)
[2017-04-29] MEDS ORDERED: SODIUM CHLORIDE 0.9% 1,000 ML IV PRN ×2 (09:43→17:15)
[2017-04-29] MEDS: LACTULOSE 20 GM/30 ML UDCUP NG SCH ×2 (13:02→22:11)
[2017-04-29] MEDS: POTASSIUM CHLORIDE 20 MEQ TABLET PO SCH (13:15)
[2017-04-29] MEDS: POTASSIUM CHLORIDE 20 MEQ TABLET PO PRN ×3 (16:28→22:09)
[2017-04-30] MEDS: ALBUTEROL/IPRATROPIUM 3 ML NEB RESP TX SCH ×3 (00:09→12:00)
[2017-04-30] MEDS: INSULIN REGULAR 100 UNIT/ML SUBCUT SCH ×3 (01:01→11:30)
[2017-04-30] MEDS: ALBUMIN 25% 25 GM in PREMIX 1 EACH IV SCH ×3 (01:50→16:10)
[2017-04-30 05:36] LABS: Basophils % 1.2 % (0.0-0.8); Eosinophils # 0.3 10*3/uL (0.0-0.87); Eosinophils % 9.2 % (0.00-10.9); Hematocrit 30.8 VOL% (35.7-47.0); Hemoglobin 10.5 GM/DL (12.0-16.0); Immature Granulocytes % 0.6 %; Immature Granulocytes Absolute 0.02 #; Lymphocytes # 0.5 10*3/uL (1.4-4.0); Lymphocytes % 16.6 % (21.3-54.2); Mean Corpuscular HGB Conc 34.1 GM/DL (32-36); Mean Corpuscular Hemoglobin 30 PG (27-34); Mean Corpuscular Volume 89.3 FL (87-102); Mean Platelet Volume 11.1 FL (9.6-12.0); Monocytes # 0.3 10*3/uL (0.11-0.8); Monocytes % 7.7 % (1.7-12.7); Neutrophils # 2.1 10*3/uL (1.4-7.4); Neutrophils % 64.7 % (38.7-73.9); Platelet Count 59 T/CUMM (130-400); Red Cell Distribution Width 18.2 % (9.3-17.3); White Blood Count 3.3 T/CUMM (4-12)
[2017-04-30 05:39] LABS: Red Blood Count 3.45 MC/CUMM (3.8-5.5)
[2017-04-30 06:01] LABS: Eosinophils 10 % (0-10); Giant Platelets Few; Hypochromasia 1+; Lymphocytes 22 % (20-55); Ovalocytes Slight; Platelet Estimate Decreased; Segmented Neutrophils 64 % (50-85); Total Cells Counted 100
[2017-04-30 06:02] LABS: Microcytosis Slight
[2017-04-30 06:21] LABS: Calcium 8.3 MG/DL (8.5-10.1); Potassium 3.7 MMOL/L (3.5-5.1)
[2017-04-30] MEDS: SODIUM CHLORIDE 0.9% 1,000 ML IV SCH ×2 (07:36→14:00)
[2017-04-30] MEDS: SPIRONOLACTONE 50 MG TABLET PO SCH (08:30)
[2017-04-30] MEDS: LACTULOSE 20 GM/30 ML UDCUP NG SCH (08:30)
[2017-04-30] MEDS: POTASSIUM CHLORIDE 20 MEQ TABLET PO SCH (08:30)
[2017-04-30] MEDS: PANTOPRAZOLE 40 MG VIAL IV SCH (08:30)
[2017-04-30] MEDS: FUROSEMIDE 40 MG TABLET PO SCH (08:30)
[2017-04-30] MEDS: THIAMINE 200 MG/2 ML VIAL IV SCH (08:34)
[2017-04-30 11:20] VITALS: BP 165/75
== END 2017-04-30 16:30 | disposition other institution (70) | DRG 353 ==
LOC: EDUNIT# → EDBD → N.ED 08:50 → SUATTDRO 10:32 → N.EDINP 10:32 → N.ICU 15:40 → N.3E 04-23 16:52
PROVIDERS: ADMIT Internal Medicine Nephrology

== ENCOUNTER 2019-05-03 19:15 | Inpatient (IN) ==
[2019-05-03] MEDS ORDERED: ACETAMINOPHEN 325 MG TABLET PO PRN (21:26)
[2019-05-03] MEDS ORDERED: DEXTROSE 10% 250 ML BAG IV PRN (21:26)
[2019-05-03] MEDS ORDERED: ONDANSETRON 4 MG/2 ML VIAL IV PRN (21:26)
[2019-05-03] MEDS ORDERED: HYDROmorphone 2 MG/1 ML VIAL IV PRN (21:26)
[2019-05-03] MEDS ORDERED: GLUCAGON 1 MG VIAL IM PRN (21:26)
[2019-05-03] MEDS: SODIUM CHLORIDE 0.9% 1,000 ML IV SCH (23:20)
[2019-05-03] MEDS: PIPERACILLIN/TAZOBACTAM 3,375 MG in SODIUM CHLORIDE 0.9% 100 ML IV SCH ×2 (23:21→23:30)
[2019-05-04] MEDS: INSULIN REGULAR 100 UNIT/ML SUBCUT SCH ×4 (01:05→17:54)
[2019-05-04] MEDS: PIPERACILLIN/TAZOBACTAM 3,375 MG in SODIUM CHLORIDE 0.9% 100 ML IV SCH ×2 (06:15→14:21)
[2019-05-04 06:26] LABS: Basophils % 0.2 % (0.0-0.8); Eosinophils # 0.1 10*3/uL (0.0-0.87); Eosinophils % 2.1 % (0.00-10.9); Hematocrit 31.7 VOL% (35.7-47.0); Hemoglobin 11.2 GM/DL (12.0-16.0); Immature Granulocytes % 0.5 %; Immature Granulocytes Absolute 0.03 #; Lymphocytes % 16.9 % (21.3-54.2); Mean Corpuscular HGB Conc 35.3 GM/DL (32-36); Mean Corpuscular Volume 98.1 FL (87-102); Mean Platelet Volume 10.7 FL (9.6-12.0); Neutrophils % 68.3 % (38.7-73.9); Platelet Count 81 T/CUMM (130-400); Red Blood Count 3.23 MC/CUMM (3.8-5.5); Red Cell Distribution Width 13.1 % (9.3-17.3); White Blood Count 5.7 T/CUMM (4-12)
[2019-05-04 06:42] LABS: Eosinophils 1 % (0-10); Lymphocytes 18 % (20-55); Platelet Estimate Decreased; Segmented Neutrophils 77 % (50-85); Total Cells Counted 100
[2019-05-04 06:43] LABS: Albumin 1.7 G/DL (3.4-5.0); Bilirubin,Total 2.8 MG/DL (0.2-1.0); Calcium 7.6 MG/DL (8.5-10.1); Microcytosis Slight; Total Protein 6.4 G/DL (6.4-8.3)
[2019-05-04] MEDS ORDERED: ALBUTEROL/IPRATROPIUM 3 ML NEB RESP TX ONE (07:51)
[2019-05-04] MEDS ORDERED: methylPREDNISolone SOD SUC 125 MG/2 ML VIAL IV ONE (07:52)
[2019-05-04] MEDS: PANTOPRAZOLE 40 MG VIAL IV SCH (07:54)
[2019-05-04] MEDS ORDERED: LIDOCAINE 1%/EPI INJ 20 ML VIAL ONE (08:14)
[2019-05-04] MEDS ORDERED: TISSUE ADHESIVE 1 EACH APPLICATOR TOP ONE (08:14)
[2019-05-04] MEDS ORDERED: ceFAZolin 1,000 MG VIAL ONE (08:14)
[2019-05-04] MEDS ORDERED: BUPIVACAINE MPF 0.25% 30 ML VIAL ONE (08:15)
[2019-05-04] MEDS ORDERED: ALBUMIN 5% 12.5 GM/250 ML VIAL IV ONE (08:33)
[2019-05-04 08:37] LABS: INR 1.2; PT Patient Result 12.9 SECS (9.6-12.2); Partial Thromboplastin Time 29.6 SECS (20.8-36.0)
[2019-05-04] MEDS ORDERED: PANTOPRAZOLE 40 MG TABLET PO SCH (09:00)
[2019-05-04] MEDS ORDERED: SUGAMMADEX 200 MG/2 ML VIAL IV ONE (10:29)
[2019-05-04] MEDS ORDERED: DESFLURANE 1 UNIT/15 MINUTE INH ONE (10:52)
[2019-05-04] MEDS ORDERED: propofoL 200 MG/20 ML VIAL IV ONE (10:52)
[2019-05-04] MEDS ORDERED: LIDOCAINE 2% 5 ML VIAL ONE (10:52)
[2019-05-04] MEDS ORDERED: ONDANSETRON 4 MG/2 ML VIAL ONE (10:53)
[2019-05-04] MEDS ORDERED: ETOMIDATE 40 MG/20 ML VIAL IV ONE (10:53)
[2019-05-04] MEDS ORDERED: fentaNYL 250 MCG/5 ML VIAL ONE (10:53)
[2019-05-04] MEDS ORDERED: PHENYLEPHRINE 10 MG/1 ML VIAL IV ONE (10:53)
[2019-05-04] MEDS ORDERED: DEXAMETHASONE 4 MG/1 ML VIAL ONE (10:53)
[2019-05-04] MEDS ORDERED: SUCCINYLCHOLINE 200 MG/10 ML VIAL ONE (10:54)
[2019-05-04] MEDS ORDERED: LACTATED RINGERS 1,000 ML IV ONE (10:54)
[2019-05-04] MEDS ORDERED: ROCURONIUM 100 MG/10 ML VIAL IV ONE (10:54)
[2019-05-04] MEDS ORDERED: SODIUM CHLORIDE 0.9% 100 ML IV ONE (10:54)
[2019-05-04] MEDS ORDERED: ALBUTEROL 2.5 MG/3 ML NEB RESP TX SCH (13:00)
[2019-05-04] MEDS: chlordiazePOXIDE 25 MG CAPSULE PO SCH ×2 (14:05→21:53)
[2019-05-04] MEDS: SODIUM CHLORIDE 0.9% 1,000 ML IV SCH (14:06)
[2019-05-04] MEDS: FUROSEMIDE 20 MG TABLET PO SCH (16:33)
[2019-05-04] MEDS: ALBUTEROL 2.5 MG/3 ML NEB RESP TX SCH ×2 (20:07→23:59)
[2019-05-04] MEDS: LACTULOSE 20 GM/30 ML UDCUP PO SCH (21:50)
[2019-05-04] MEDS: MOMETASONE 220 MCG/PUFF INHALER 14 DOSE INH SCH (21:50)
[2019-05-04] MEDS: PROPRANOLOL 10 MG TABLET PO SCH (21:50)
[2019-05-05] MEDS: INSULIN REGULAR 100 UNIT/ML SUBCUT SCH ×4 (01:41→18:24)
[2019-05-05] MEDS: PIPERACILLIN/TAZOBACTAM 3,375 MG in SODIUM CHLORIDE 0.9% 100 ML IV SCH ×4 (01:42→23:47)
[2019-05-05 05:47] LABS: Hematocrit 20.4 VOL% (35.7-47.0); Immature Granulocytes % 0.5 %; Immature Granulocytes Absolute 0.03 #; Lymphocytes # 0.6 10*3/uL (1.4-4.0); Lymphocytes % 11.2 % (21.3-54.2); Mean Corpuscular HGB Conc 34.3 GM/DL (32-36); Mean Platelet Volume 10.4 FL (9.6-12.0); Monocytes % 12.3 % (1.7-12.7); Red Blood Count 2.02 MC/CUMM (3.8-5.5); White Blood Count 5.6 T/CUMM (4-12)
[2019-05-05 05:51] LABS: Platelet Count 58 T/CUMM (130-400)
[2019-05-05] MEDS: chlordiazePOXIDE 25 MG CAPSULE PO SCH ×3 (05:51→21:27)
[2019-05-05 06:08] LABS: Albumin 1.7 G/DL (3.4-5.0); Bilirubin,Total 1.3 MG/DL (0.2-1.0); Calcium 7.2 MG/DL (8.5-10.1); Osmolality,Calculated 284.4 MOS/KG (273-304); Total Protein 5.2 G/DL (6.4-8.3)
[2019-05-05 07:08] LABS: Folate 7.5 NG/ML (5.4-24.0)
[2019-05-05] MEDS ORDERED: SODIUM CHLORIDE 0.9% 1,000 ML IV PRN ×2 (07:14→08:22)
[2019-05-05] MEDS: ALBUTEROL 2.5 MG/3 ML NEB RESP TX SCH ×4 (08:39→23:57)
[2019-05-05 09:00] LABS: INR 1.2; PT Patient Result 13.3 SECS (9.6-12.2); Partial Thromboplastin Time 32.2 SECS (20.8-36.0)
[2019-05-05] MEDS: LACTULOSE 20 GM/30 ML UDCUP PO SCH ×2 (09:14→21:28)
[2019-05-05] MEDS: MONTELUKAST 10 MG TABLET PO SCH (09:14)
[2019-05-05] MEDS: FUROSEMIDE 20 MG TABLET PO SCH ×2 (09:15→16:15)
[2019-05-05] MEDS: PROPRANOLOL 10 MG TABLET PO SCH ×2 (09:15→21:28)
[2019-05-05] MEDS: SPIRONOLACTONE 25 MG TABLET PO SCH (09:15)
[2019-05-05] MEDS: FOLIC ACID 1 MG TABLET PO SCH (09:15)
[2019-05-05] MEDS: THIAMINE 100 MG TABLET PO SCH (09:15)
[2019-05-05] MEDS: PANTOPRAZOLE 40 MG VIAL IV SCH (09:16)
[2019-05-05] MEDS: MULTIVITAMIN (CENTRUM) TABLET PO SCH (09:16)
[2019-05-05] MEDS: MOMETASONE 220 MCG/PUFF INHALER 14 DOSE INH SCH ×2 (09:25→21:28)
[2019-05-05 18:58] LABS: Hematocrit 28.3 VOL% (35.7-47.0); Hemoglobin 9.7 GM/DL (12.0-16.0)
[2019-05-05] MEDS: SODIUM CHLORIDE 0.9% 1,000 ML IV SCH ×2 (23:47→23:51)
[2019-05-06] MEDS: INSULIN REGULAR 100 UNIT/ML SUBCUT SCH ×4 (00:49→17:40)
[2019-05-06] MEDS: chlordiazePOXIDE 25 MG CAPSULE PO SCH ×3 (05:26→21:05)
[2019-05-06 06:39] LABS: Basophils % 0.7 % (0.0-0.8); Eosinophils # 0.1 10*3/uL (0.0-0.87); Hematocrit 26.6 VOL% (35.7-47.0); Hemoglobin 9.1 GM/DL (12.0-16.0); Immature Granulocytes % 0.2 %; Immature Granulocytes Absolute 0.01 #; Lymphocytes # 0.9 10*3/uL (1.4-4.0); Lymphocytes % 19.6 % (21.3-54.2); Mean Corpuscular HGB Conc 34.2 GM/DL (32-36); Mean Corpuscular Volume 96.7 FL (87-102); Mean Platelet Volume 10.8 FL (9.6-12.0); Monocytes % 12.9 % (1.7-12.7); Neutrophils % 64.6 % (38.7-73.9); Red Blood Count 2.75 MC/CUMM (3.8-5.5); Red Cell Distribution Width 15.9 % (9.3-17.3); White Blood Count 4.4 T/CUMM (4-12)
[2019-05-06 06:41] LABS: Platelet Count 73 T/CUMM (130-400)
[2019-05-06 07:00] LABS: Albumin 1.8 G/DL (3.4-5.0); Bilirubin,Total 1.7 MG/DL (0.2-1.0); Calcium 7.3 MG/DL (8.5-10.1); Osmolality,Calculated 284.3 MOS/KG (273-304); Total Protein 5.6 G/DL (6.4-8.3)
[2019-05-06] MEDS: PIPERACILLIN/TAZOBACTAM 3,375 MG in SODIUM CHLORIDE 0.9% 100 ML IV SCH ×3 (07:09→22:55)
[2019-05-06] MEDS: SODIUM CHLORIDE 0.9% 1,000 ML IV SCH (07:18)
[2019-05-06] MEDS: ALBUTEROL 2.5 MG/3 ML NEB RESP TX SCH ×3 (07:54→19:32)
[2019-05-06] MEDS: LACTULOSE 20 GM/30 ML UDCUP PO SCH ×2 (08:54→21:05)
[2019-05-06] MEDS: SPIRONOLACTONE 25 MG TABLET PO SCH (08:55)
[2019-05-06] MEDS: PANTOPRAZOLE 40 MG VIAL IV SCH (08:55)
[2019-05-06] MEDS: THIAMINE 100 MG TABLET PO SCH (08:56)
[2019-05-06] MEDS: MULTIVITAMIN (CENTRUM) TABLET PO SCH (08:56)
[2019-05-06] MEDS: FOLIC ACID 1 MG TABLET PO SCH (08:56)
[2019-05-06] MEDS: PROPRANOLOL 10 MG TABLET PO SCH ×2 (08:56→21:06)
[2019-05-06] MEDS: FUROSEMIDE 20 MG TABLET PO SCH ×2 (08:56→17:04)
[2019-05-06] MEDS: MONTELUKAST 10 MG TABLET PO SCH (08:56)
[2019-05-06] MEDS: MOMETASONE 220 MCG/PUFF INHALER 14 DOSE INH SCH ×2 (09:00→21:05)
[2019-05-06] MEDS: POTASSIUM CHLORIDE 20 MEQ TABLET PO SCH ×3 (10:44→16:05)
[2019-05-07] MEDS: INSULIN REGULAR 100 UNIT/ML SUBCUT SCH ×5 (00:53→23:28)
[2019-05-07] MEDS: ALBUTEROL 2.5 MG/3 ML NEB RESP TX SCH ×4 (00:55→20:48)
[2019-05-07] MEDS: SODIUM CHLORIDE 0.9% 1,000 ML IV SCH ×2 (05:21→06:11)
[2019-05-07] MEDS: chlordiazePOXIDE 25 MG CAPSULE PO SCH ×3 (05:21→19:40)
[2019-05-07 06:40] LABS: Basophils % 0.5 % (0.0-0.8); Eosinophils # 0.2 10*3/uL (0.0-0.87); Eosinophils % 4.5 % (0.00-10.9); Hematocrit 28.4 VOL% (35.7-47.0); Hemoglobin 9.6 GM/DL (12.0-16.0); Immature Granulocytes % 0.2 %; Immature Granulocytes Absolute 0.01 #; Lymphocytes % 22.7 % (21.3-54.2); Mean Corpuscular HGB Conc 33.8 GM/DL (32-36); Mean Corpuscular Volume 98.3 FL (87-102); Mean Platelet Volume 10.8 FL (9.6-12.0); Monocytes % 10.3 % (1.7-12.7); Neutrophils % 61.8 % (38.7-73.9); Red Blood Count 2.89 MC/CUMM (3.8-5.5); Red Cell Distribution Width 15.3 % (9.3-17.3); White Blood Count 4.2 T/CUMM (4-12)
[2019-05-07 06:44] LABS: Platelet Count 81 T/CUMM (130-400)
[2019-05-07] MEDS: PIPERACILLIN/TAZOBACTAM 3,375 MG in SODIUM CHLORIDE 0.9% 100 ML IV SCH ×3 (06:46→23:21)
[2019-05-07 07:07] LABS: Hypochromasia 1+; Ovalocytes Slight; Platelet Estimate Decreased
[2019-05-07 07:11] LABS: Albumin 1.9 G/DL (3.4-5.0); Bilirubin,Total 1.6 MG/DL (0.2-1.0); Calcium 7.6 MG/DL (8.5-10.1); Osmolality,Calculated 293.7 MOS/KG (273-304); Total Protein 5.9 G/DL (6.4-8.3)
[2019-05-07] MEDS: MOMETASONE 220 MCG/PUFF INHALER 14 DOSE INH SCH ×2 (08:24→21:24)
[2019-05-07] MEDS: PROPRANOLOL 10 MG TABLET PO SCH ×2 (08:25→21:24)
[2019-05-07] MEDS: SPIRONOLACTONE 25 MG TABLET PO SCH (08:25)
[2019-05-07] MEDS: THIAMINE 100 MG TABLET PO SCH (08:25)
[2019-05-07] MEDS: MULTIVITAMIN (CENTRUM) TABLET PO SCH (08:25)
[2019-05-07] MEDS: MONTELUKAST 10 MG TABLET PO SCH (08:26)
[2019-05-07] MEDS: FOLIC ACID 1 MG TABLET PO SCH (08:26)
[2019-05-07] MEDS: FUROSEMIDE 20 MG TABLET PO SCH ×2 (08:26→16:39)
[2019-05-07] MEDS: LACTULOSE 20 GM/30 ML UDCUP PO SCH ×2 (08:26→21:24)
[2019-05-07] MEDS: PANTOPRAZOLE 40 MG VIAL IV SCH (08:26)
[2019-05-08] MEDS: ALBUTEROL 2.5 MG/3 ML NEB RESP TX SCH ×4 (01:51→19:50)
[2019-05-08 04:59] LABS: Basophils % 0.7 % (0.0-0.8); Eosinophils # 0.3 10*3/uL (0.0-0.87); Eosinophils % 7.6 % (0.00-10.9); Hematocrit 29.9 VOL% (35.7-47.0); Immature Granulocytes % 0.2 %; Immature Granulocytes Absolute 0.01 #; Lymphocytes % 24.1 % (21.3-54.2); Mean Corpuscular HGB Conc 33.4 GM/DL (32-36); Mean Platelet Volume 10.6 FL (9.6-12.0); Monocytes % 9.6 % (1.7-12.7); Neutrophils % 57.8 % (38.7-73.9); Platelet Count 89 T/CUMM (130-400); Red Blood Count 3.02 MC/CUMM (3.8-5.5); White Blood Count 4.1 T/CUMM (4-12)
[2019-05-08 05:20] LABS: Hypochromasia Slight
[2019-05-08 05:21] LABS: Microcytosis Slight; Platelet Estimate Decreased
[2019-05-08] MEDS: SODIUM CHLORIDE 0.9% 1,000 ML IV SCH ×2 (05:25→13:26)
[2019-05-08] MEDS: chlordiazePOXIDE 25 MG CAPSULE PO SCH ×4 (05:26→23:45)
[2019-05-08 05:31] LABS: Albumin 1.9 G/DL (3.4-5.0); Bilirubin,Total 1.5 MG/DL (0.2-1.0); Calcium 7.8 MG/DL (8.5-10.1); Osmolality,Calculated 297.3 MOS/KG (273-304); Total Protein 5.9 G/DL (6.4-8.3)
[2019-05-08] MEDS: INSULIN REGULAR 100 UNIT/ML SUBCUT SCH ×3 (05:47→18:28)
[2019-05-08] MEDS: PIPERACILLIN/TAZOBACTAM 3,375 MG in SODIUM CHLORIDE 0.9% 100 ML IV SCH ×2 (06:37→14:04)
[2019-05-08] MEDS: SPIRONOLACTONE 25 MG TABLET PO SCH (08:37)
[2019-05-08] MEDS: MONTELUKAST 10 MG TABLET PO SCH (08:37)
[2019-05-08] MEDS: THIAMINE 100 MG TABLET PO SCH (08:38)
[2019-05-08] MEDS: PROPRANOLOL 10 MG TABLET PO SCH ×2 (08:38→22:09)
[2019-05-08] MEDS: FOLIC ACID 1 MG TABLET PO SCH (08:38)
[2019-05-08] MEDS: MOMETASONE 220 MCG/PUFF INHALER 14 DOSE INH SCH ×2 (08:38→22:09)
[2019-05-08] MEDS: MULTIVITAMIN (CENTRUM) TABLET PO SCH (08:38)
[2019-05-08] MEDS: PANTOPRAZOLE 40 MG VIAL IV SCH (08:38)
[2019-05-08] MEDS: FUROSEMIDE 20 MG TABLET PO SCH ×2 (08:38→15:20)
[2019-05-08] MEDS: LACTULOSE 20 GM/30 ML UDCUP PO SCH (08:38)
[2019-05-08] MEDS ORDERED: TUBERCULIN SKIN TEST 0.1 ML SYRINGE INTRADERM ONE (17:00)
[2019-05-08] MEDS: SODIUM CHLORIDE 0.45% 1,000 ML IV SCH (22:08)
[2019-05-09] MEDS: ALBUTEROL 2.5 MG/3 ML NEB RESP TX SCH ×4 (00:30→19:02)
[2019-05-09] MEDS: INSULIN REGULAR 100 UNIT/ML SUBCUT SCH ×4 (01:34→18:16)
[2019-05-09] MEDS: PIPERACILLIN/TAZOBACTAM 3,375 MG in SODIUM CHLORIDE 0.9% 100 ML IV SCH ×3 (01:37→17:36)
[2019-05-09] MEDS: chlordiazePOXIDE 25 MG CAPSULE PO SCH (05:30)
[2019-05-09 06:09] LABS: Basophils % 0.5 % (0.0-0.8); Eosinophils # 0.5 10*3/uL (0.0-0.87); Hematocrit 31.3 VOL% (35.7-47.0); Hemoglobin 10.5 GM/DL (12.0-16.0); Immature Granulocytes % 0.3 %; Immature Granulocytes Absolute 0.01 #; Lymphocytes % 25.1 % (21.3-54.2); Mean Corpuscular HGB Conc 33.5 GM/DL (32-36); Mean Corpuscular Volume 99.4 FL (87-102); Mean Platelet Volume 10.2 FL (9.6-12.0); Monocytes % 9.4 % (1.7-12.7); Neutrophils % 52.7 % (38.7-73.9); Platelet Count 94 T/CUMM (130-400); Red Blood Count 3.15 MC/CUMM (3.8-5.5); Red Cell Distribution Width 15.2 % (9.3-17.3); White Blood Count 3.8 T/CUMM (4-12)
[2019-05-09 06:27] LABS: Eosinophils 10 % (0-10); Hypochromasia 1+; Lymphocytes 27 % (20-55); Microcytosis Slight; Platelet Estimate Decreased; Segmented Neutrophils 55 % (50-85); Total Cells Counted 100
[2019-05-09 06:46] LABS: Albumin 2.1 G/DL (3.4-5.0); Bilirubin,Total 2.1 MG/DL (0.2-1.0); Osmolality,Calculated 283.3 MOS/KG (273-304); Total Protein 6.4 G/DL (6.4-8.3)
[2019-05-09] MEDS: SODIUM CHLORIDE 0.45% 1,000 ML IV SCH ×2 (06:49→23:28)
[2019-05-09] MEDS ORDERED: chlordiazePOXIDE 25 MG CAPSULE PO PRN (06:57)
[2019-05-09] MEDS: PANTOPRAZOLE 40 MG VIAL IV SCH (09:06)
[2019-05-09] MEDS: SPIRONOLACTONE 25 MG TABLET PO SCH (09:08)
[2019-05-09] MEDS: THIAMINE 100 MG TABLET PO SCH (09:08)
[2019-05-09] MEDS: LACTULOSE 20 GM/30 ML UDCUP PO SCH (09:08)
[2019-05-09] MEDS: PROPRANOLOL 10 MG TABLET PO SCH ×2 (09:08→22:52)
[2019-05-09] MEDS: FUROSEMIDE 20 MG TABLET PO SCH ×2 (09:09→16:04)
[2019-05-09] MEDS: MOMETASONE 220 MCG/PUFF INHALER 14 DOSE INH SCH ×2 (09:09→23:17)
[2019-05-09] MEDS: MONTELUKAST 10 MG TABLET PO SCH (09:09)
[2019-05-09] MEDS: FOLIC ACID 1 MG TABLET PO SCH (09:09)
[2019-05-09] MEDS: MULTIVITAMIN (CENTRUM) TABLET PO SCH (09:09)
[2019-05-10] MEDS: ALBUTEROL 2.5 MG/3 ML NEB RESP TX SCH ×3 (00:52→14:04)
[2019-05-10] MEDS: PIPERACILLIN/TAZOBACTAM 3,375 MG in SODIUM CHLORIDE 0.9% 100 ML IV SCH ×2 (03:55→09:03)
[2019-05-10] MEDS: INSULIN REGULAR 100 UNIT/ML SUBCUT SCH ×3 (03:57→13:01)
[2019-05-10] MEDS: FOLIC ACID 1 MG TABLET PO SCH (08:59)
[2019-05-10] MEDS: LACTULOSE 20 GM/30 ML UDCUP PO SCH (08:59)
[2019-05-10] MEDS: MULTIVITAMIN (CENTRUM) TABLET PO SCH (08:59)
[2019-05-10] MEDS: PANTOPRAZOLE 40 MG VIAL IV SCH (08:59)
[2019-05-10] MEDS: MONTELUKAST 10 MG TABLET PO SCH (09:00)
[2019-05-10] MEDS: THIAMINE 100 MG TABLET PO SCH (09:00)
[2019-05-10] MEDS: MOMETASONE 220 MCG/PUFF INHALER 14 DOSE INH SCH (09:05)
[2019-05-10] MEDS: FUROSEMIDE 20 MG TABLET PO SCH (09:06)
[2019-05-10] MEDS: SPIRONOLACTONE 25 MG TABLET PO SCH (10:16)
[2019-05-10] MEDS: PROPRANOLOL 10 MG TABLET PO SCH (10:16)
[2019-05-10 14:18] VITALS: BP 111/48
== END 2019-05-10 14:30 | disposition swing bed (61) | DRG 354 ==
LOC: EDBD → EDUNIT# → N.ED 19:15 → N.EDINP 20:03 → N.3E 21:24
PROVIDERS: ADMIT Surgery; ATTEND Surgery